=== PATIENT | female | born 1975 | race Caucasian/White ===

== ENCOUNTER 2023-08-05 11:00 | Outpatient (RCR) | payer BC, SELFPAY ==
--- NOTE | 2023-06-09 14:29 | OPREHPOC ---
Outpatient Therapy Plan of Care This is a Multidisciplinary Plan of Care that may contain components documented by all disciplines (PT, OT, and ST.) PT Problem 1 PT Problem #1 Knowledge Deficit PT Goal 1 Goal 1. Patient will perform independent HEP Target Visit 4 PT Problem 2 PT Problem #2 Impaired Strength PT Goal 1 Goal 1. Improve pelvic floor strength to 4/5 to decrease pelvic pressure Target Visit 4 PT Goal 2 Goal 2. Improve pelvic floor endurance to 10 seconds to decrease pelvic pressure Target Visit 4 PT Problem 3 PT Problem #3 Impaired Functional ADLs PT Goal 1 Goal 1. Patient able to sleep without needing to void more than 1 time at night Target Visit 4
--- NOTE | 2023-06-09 14:29 | PTOPEVAL1 ---
Assessment and note entered by Lela Reyna DPShamika Evaluation Information Assessment Status Evaluation Subjective Information Pt reports a lot of pelvic pressure when she has to go to the bathroom. Has also been told she has bladder sensitivity . States her urologist thinks she needs to be able to relax the muscles in order to void. Has lost a significant amount of weight (67 pounds) since November, has been having urinary issues since April. Pt voids up to 16 times a day (less if she doesn't put stevia in her coffee), gets up 2-3 more times at night to void. No urine leakage typically, less often than monthly. Pressure and discomfort with urination but no pain. Was recently given antibiotics for a UTI but was not cultured. BM maybe 1 time a week ( reports she has never been regular). Sometimes pain with BM. Denies history of pelvic pain. Pt has been 2 times, 2 C-sections. Abnormal pap smear in the past but follow up test was fine. Denies other b/b issues. Patient goal: decrease discomfort/pressure with voiding, decrease frequency of urination especially at night. Reported Pain Level Pain Score 0: Self Report Assessment PT Clinical Summary The patient is presenting to skilled therapy with a recent history of pelvic pressure and urinary frequency. She presents with decreased pelvic floor strength and endurance, as well as overall decreased core strength, which are contributing to her symptoms. She will highly benefit from therapy to address these impairments to decrease pressure and decrease frequency of urination . Plan of Care Interventions Manual Therapy,Neuro Re-education,Patient/ Caregiver Education,Therapeutic Activities, Therapeutic Exercise PT Services Indicated Yes Treatment Frequency and 1 time a week for 4 visits Duration These treatments will address the objective and functional deficits as defined above. The patient will be advanced safely and appropriately in order for the patient to progress towards his/her prior level of function. Additional exercises will be introduced and as well as a comprehensive home exercise program upon discharge, if needed, ?to ensure carryover of functional gains achieved in the clinic. This treatment plan has been reviewed and agreement upon by the patient.
--- NOTE | 2023-07-07 15:03 | OPREHPOC ---
Outpatient Therapy Plan of Care This is a Multidisciplinary Plan of Care that may contain components documented by all disciplines (PT, OT, and ST.) PT Problem 1 PT Problem #1 Knowledge Deficit PT Goal 1 Goal 1. Patient will perform independent HEP Target Visit 7 Progress Partially Met Comment new HEP issued today PT Problem 2 PT Problem #2 Impaired Strength PT Goal 1 Goal 1. Improve pelvic floor strength to 4/5 to decrease pelvic pressure New goal: 2. Improve strength to 5/5 to decrease pelvic pressure Target Visit 7 Progress Partially Met Comment 1. Met 2. New PT Goal 2 Goal 2. Improve pelvic floor endurance to 10 seconds to decrease pelvic pressure Target Visit 4 Progress Met PT Problem 3 PT Problem #3 Impaired Functional ADLs PT Goal 1 Goal 1. Patient able to sleep without needing to void more than 1 time at night Target Visit 4 Progress Met
--- NOTE | 2023-07-07 15:04 | PTOPPROG ---
Assessment and note entered by Lela Reyna DPT Evaluation Information Assessment Status Progress Subjective Information Overall feels better with therapy, does not notice pressure when her bladder is really full but does notice it other times. The sensation is not happening as often. Denies urine leakage. Voiding less frequently throughout the day as well, a lot lower than 16 times a day . Almost always 1 time at night. Assessment PT Clinical Summary The patient has made good progress in therapy and reports decreased frequency of pelvic pressure with voiding and decreased frequency of urination. She demonstrates improved core and pelvic floor strength and endurance but continues to have difficulty with pelvic floor coordination activities. She will benefit from continued skilled therapy to further address strength and coordination to eliminate pressure with voiding. Plan of Care Interventions Manual Therapy,Neuro Re-education,Patient/ Caregiver Education,Therapeutic Activities, Therapeutic Exercise PT Services Indicated Yes Treatment Frequency and 1 visit every other week x 2 visits Duration These treatments will address the objective and functional deficits as defined above. The patient will be advanced safely and appropriately in order for the patient to progress towards his/her prior level of function. Additional exercises will be introduced and as well as a comprehensive home exercise program upon discharge, if needed, ?to ensure carryover of functional gains achieved in the clinic. This treatment plan has been reviewed and agreement upon by the patient.
--- NOTE | 2023-08-05 11:28 | OPREHPOC ---
Outpatient Therapy Plan of Care This is a Multidisciplinary Plan of Care that may contain components documented by all disciplines (PT, OT, and ST.) PT Problem 1 PT Problem #1 Knowledge Deficit PT Goal 1 Goal 1. Patient will perform independent HEP Target Visit 7 Progress Met Comment new HEP issued today PT Problem 2 PT Problem #2 Impaired Strength PT Goal 1 Goal 1. Improve pelvic floor strength to 4/5 to decrease pelvic pressure New goal: 2. Improve strength to 5/5 to decrease pelvic pressure Target Visit 7 Progress Partially Met Comment 1. Met 2. Not met PT Goal 2 Goal 2. Improve pelvic floor endurance to 10 seconds to decrease pelvic pressure Target Visit 4 Progress Met PT Problem 3 PT Problem #3 Impaired Functional ADLs PT Goal 1 Goal 1. Patient able to sleep without needing to void more than 1 time at night Target Visit 4 Progress Partially Met
--- NOTE | 2023-08-05 11:28 | PTOPDC ---
Assessment and note entered by Lela Reyna DPT Evaluation Information Assessment Status Discharge Subjective Information Pt reports she has felt the pressure hardly at all in the last week. Voiding 6-7 times a day and up to 2 times at night. Reported Pain Level Pain Score 0: Self Report Assessment PT Clinical Summary The patient has continued to make good progress and reports she feels pelvic pressure with urination very infrequently. She also reports decreased urinary frequency. Due to her progress, plan to discharge to [facility]. She has been educated to follow up with MD and/or PT as needed. Plan of Care PT Services Indicated No
== END 2023-08-08 13:22 | disposition home or self-care (01) ==
LOC: ANHPT 11:00
PROVIDERS: PCP Family Medicine
DX: R35.0 Frequency of micturition (principal); R10.2 Pelvic and perineal pain
CPT/HCPCS: 97112; 97161; 97530

== ENCOUNTER 2025-05-09 11:00 | Outpatient (RCR) | payer BC, SELFPAY ==
--- NOTE | 2025-03-21 14:35 | OPREHPOC ---
Outpatient Therapy Plan of Care This is a Multidisciplinary Plan of Care that may contain components documented by all disciplines (PT, OT, and ST.) PT Problem 1 PT Problem #1 Knowledge Deficit PT Goal 1 Goal / Goal Update 1*independent with HEP 2* pt voice correct work station set up and computer use Target Visit 8 PT Problem 2 PT Problem #2 Pain PT Goal 1 Goal / Goal Update 1* pt report pain rating of neck at worst of 1/10 2* pt report NO pain in R shoulder joint Target Visit 8 PT Problem 3 PT Problem #3 Impaired Flexibility PT Goal 1 Goal / Goal Update * increase cervical rotation to improve driving and self care/home tasks: 1* to R 65' 2*to L 65' Target Visit 8 PT Problem 4 PT Problem #4 Impaired Strength PT Goal 1 Goal / Goal Update *improve cervical-thoracic strength, to improve position of neck 1* pt maintain correct shoulder position during therapy sessions 2* pt perform 20 reps of standing strengthening exercises Target Visit 8
--- NOTE | 2025-03-21 14:36 | PTOPEVAL1 ---
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 Self assessment Neck Disability index rating of 34% limitation in activity level. Since receiving the shoulder injection, her R shoulder pain has eased and gone. She has seen a neck dr and has therapy orders from her also. She works from home, computer and phone work. With the evaluation: she has tightness over R and L upper traps and SCM with rounded shoulders and forward head and neck posture; decreased cervical rotation to R and L with pain increase over R cervical area. Skilled PT services are indicated for modalities to decrease pain and spasms, with therapeutic exercises to increase cervical-thoracic flexibility and strength, to improve posture and positioning, with education for HEP and body mechanics. Plan of Care Interventions Electrical Stimulation,Hot Pack/Cold Pack,Manual Therapy,Mechanical Traction,Neuro Re-education, Patient/Caregiver Education,Therapeutic Activities ,Therapeutic Exercise,Ultrasound,Other Other Interventions taping, dry needling- she agreed to PT Services Indicated Yes Treatment Frequency and 1-2x/wk for 8 visits Duration These treatments will address the objective and functional deficits as defined above. The patient will be advanced safely and appropriately in order for the patient to progress towards his/her prior level of function. Additional exercises will be introduced and as well as a comprehensive home exercise program upon discharge, if needed, ?to ensure carryover of functional gains achieved in the clinic. This treatment plan has been reviewed and agreement upon by the patient.
--- NOTE | 2025-04-11 11:49 | PCPTNOTE ---
pt no call no showed her visit today.
--- NOTE | 2025-05-09 12:47 | OPREHPOC ---
Outpatient Therapy Plan of Care This is a Multidisciplinary Plan of Care that may contain components documented by all disciplines (PT, OT, and ST.) PT Problem 1 PT Problem #1 Knowledge Deficit PT Goal 1 Goal / Goal Update 1*independent with HEP 2* pt voice correct work station set up and computer use 05-09-25 d/c goals met Target Visit 8 Progress Met PT Problem 2 PT Problem #2 Pain PT Goal 1 Goal / Goal Update 1* pt report pain rating of neck at worst of 11/30 2* pt report NO pain in R shoulder joint 05-09-25 d/c goal 2 met Target Visit 8 Progress Partially Met PT Problem 3 PT Problem #3 Impaired Flexibility PT Goal 1 Goal / Goal Update * increase cervical rotation to improve driving and self care/home tasks: 1* to R 65' 2*to L 65' 05-09-25 d/c goals met Target Visit 8 Progress Met PT Problem 4 PT Problem #4 Impaired Strength PT Goal 1 Goal / Goal Update *improve cervical-thoracic strength, to improve position of neck 1* pt maintain correct shoulder position during therapy sessions 2* pt perform 20 reps of standing strengthening exercises 05-09-25 d/c goals met Target Visit 8 Progress Met
--- NOTE | 2025-05-09 12:47 | PTOPDC ---
Assessment and note entered by Jamee Hansen, PT Assessment Status Discharge ICD-10 Condition Codes (PT) Pain in right shoulder M25.511 Other ICD-10 Condition Codes ( M75.41, M 75.42 shoulder impingement and pain PT) Onset December 2024 Subjective Information shoulder has been better since receiving the cortisone shot; R side of neck is still tight; do not have a follow up appointment with ; Reported Pain Level Pain Score Self Report Additional Pain Score Comments pain range of neck pain 1-5/10 R side of neck is tight, rubber band pulling as tight as can go; Assessment PT Clinical Summary Tiff has received 7 PT sessions. Compared to the initial evaluation: pain rating of neck from 1-2 to 1-5/10- reports tight, not pain; and no pain in her R shoulder; self assessment Neck Index rating from 34 to 6% limitation in activity level; increase cervical ROM of rotation to R and L have increased; only cervical rotation to L increases the tightness over R neck; independent with HEP, body mechanics , work station set up, posture and pain management techniques. The goals were partially met. Discharge PT. She is to continue with her home exercises and posture awareness. Plan of Care PT Services Indicated No
== END 2025-05-09 14:27 | disposition home or self-care (01) ==
LOC: ANHPT 11:00
PROVIDERS: PCP Family Medicine; Visit Provider Orthopaedic Surgery
DX: M75.41 Impingement syndrome of right shoulder (principal)
CPT/HCPCS: 20560; 97012; 97110; 97140; 97161; 97530

== ENCOUNTER 2025-09-02 12:30 | Outpatient (RCR) | payer BC, SELFPAY ==
--- NOTE | 2025-06-26 08:26 | OPREHPOC ---
Outpatient Therapy Plan of Care This is a Multidisciplinary Plan of Care that may contain components documented by all disciplines (PT, OT, and ST.) PT Problem 1 PT Problem #1 Knowledge Deficit PT Goal 1 Goal / Goal Update Patient to demonstrate independence with HEP for improved self-reliance of symptom management. Target Visit 5 PT Problem 2 PT Problem #2 Pain PT Goal 1 Goal / Goal Update 1. Patient to decrease subjective reports of pain to <2/10 with combined hip mobility for improved ADL tolerance. 2. Pt will increase LEFS score by at least 9 points in order to demonstrate the minimal clinically important difference (MCID) in functional improvement. Target Visit 10 PT Problem 3 PT Problem #3 Impaired Strength PT Goal 1 Goal / Goal Update Patient to demonstrate L hip strength >=5/5 for improved functional stability required for ADLs. Target Visit 10 PT Problem 4 PT Problem #4 Impaired Range of Motion PT Goal 1 Goal / Goal Update Pt to demonstrate an increase of L hip ER/IR AROM of WFL to improve LE dressing. Target Visit 10
--- NOTE | 2025-06-26 08:26 | PTOPEVAL1 ---
Assessment and note entered by Malia Ashby PT Evaluation Information Assessment Status Evaluation ICD-10 Condition Codes (PT) Pain in right hip M25.551 Subjective Information Primary Complaint: Lateral Thigh Pain Pain description: throbbing, L lateral/posterior History of current condition: Pt reports symptoms started on last July. She had a deep tissue massage and woke up the next day with the pain. She had to put it off due to neck pain which she finished therapy for in April. She reports having the throbbing for so long that she has been trying to stretch her hip out to help. She reports at early onset she could not have even crossed her legs and would have to pick it up at times. She tends to sit with her ankles crossed all the time. She also has a history of chronic ITB pain and tightness with certain yoga poses. Sxs made worse with: crossing legs, trying to put shoes on Sxs improved with: avoiding position, no change with Meloxicam CLOF: unable to meditate or perform yoga poses, difficulty putting shoes on PLOF: no limitations Reported Pain Level Pain Score 0: Self Report Assessment PT Clinical Summary Pt is a year old female who presents to physical therapy with a primary complaint of L lateral thigh pain since July 2024. Pt demonstrates L hip weakness, pain with combined motions of L hip adduction/flexion/external rotation, decreased mobility, gait deficit, and decreased flexibility that limit their ability to perform ADLs. Signs and symptoms potentially indicate hip impingement. Pt will benefit from skilled physical therapy to address the above listed deficits and return to PLOF. HEP instructed and written handout provided, EX tolerated well with no adverse effects to note post-session. Pt was educated on importance of adherence to HEP. Pt was also educated on anatomy, prognosis, home modalities, and PT POC. Plan of Care Interventions Aquatic Therapy,Electrical Stimulation,Gait Training,Hot Pack/Cold Pack,Manual Therapy,Neuro Re-education,Patient/Caregiver Education, Therapeutic Activities,Therapeutic Exercise,Self- Care/Home Management PT Services Indicated Yes Treatment Frequency and 1-2x/wk for 10 sessions Duration These treatments will address the objective and functional deficits as defined above. The patient will be advanced safely and appropriately in order for the patient to progress towards his/her prior level of function. Additional exercises will be introduced and as well as a comprehensive home exercise program upon discharge, if needed, ?to ensure carryover of functional gains achieved in the clinic. This treatment plan has been reviewed and agreement upon by the patient.
--- NOTE | 2025-08-05 10:44 | OPREHPOC ---
Outpatient Therapy Plan of Care This is a Multidisciplinary Plan of Care that may contain components documented by all disciplines (PT, OT, and ST.) PT Problem 1 PT Problem #1 Knowledge Deficit PT Goal 1 Goal / Goal Update Patient to demonstrate independence with HEP for improved self-reliance of symptom management. 08/05/25 progressing, pt needs frequent reinforcement for proper form and gentle stretching Target Visit 5 Progress Partially Met PT Problem 2 PT Problem #2 Pain PT Goal 1 Goal / Goal Update 1. Patient to decrease subjective reports of pain to <2/10 with combined hip mobility for improved ADL tolerance. 2. Pt will increase LEFS score by at least 9 points in order to demonstrate the minimal clinically important difference (MCID) in functional improvement. 08/05/25 1. MET 2. 27% Target Visit 10 Progress Met PT Problem 3 PT Problem #3 Impaired Strength PT Goal 1 Goal / Goal Update Patient to demonstrate L hip strength >=5/5 for improved functional stability required for ADLs. 08/05/25 progressing extension 4+/5 Target Visit 10 Progress Met PT Problem 4 PT Problem #4 Impaired Range of Motion PT Goal 1 Goal / Goal Update Pt to demonstrate an increase of L hip ER/IR AROM of WFL to improve LE dressing. 08/05/25 progressing Target Visit 10 Progress Partially Met
--- NOTE | 2025-08-05 10:44 | PTOPPROG ---
Assessment and note entered by Malia Ashby, PT Evaluation Information Assessment Status Progress ICD-10 Condition Codes (PT) Pain in right hip M25.551 Subjective Information Primary Complaint: Lateral Thigh Pain Pain description: tightness Pt reports symptoms are improving with PT. She can bring her ankle to the top of her opposite knee to put shoes and socks on but she has to use her hand to help it. She is able to sit comfortably with her feet crossed now. She notes some lateral hip discomfort with prolonged standing. Overall, the pt reports feeling 50% improvement since starting therapy. She knows it is going to take progressive and prolonged stretching and strengthening to be completely better. In regards to her main goal in PT to cross her legs she feels 95% better. CLOF: performing yoga and HEP consistently but there are still positions in yoga she is unable to perform Assessment PT Clinical Summary Patient's condition has improved overall as evidenced by advancements in symptoms, mobility, and strength. However, some limitations are still present such as hip extension weakness, ROM restrictions, and proper technique with her HEP. She requires verbal cueing to perform exercises with the proper form and reinforcement for gentle stretching. Patient would benefit from continued skilled PT services to address continued limitations and facilitate a return to her PLOF. Reducing frequency of sessions to improve patient self-reliance with independent strengthening, stretching, and mobility. Plan of Care Interventions Aquatic Therapy,Electrical Stimulation,Gait Training,Hot Pack/Cold Pack,Manual Therapy,Neuro Re-education,Patient/Caregiver Education, Therapeutic Activities,Therapeutic Exercise,Self- Care/Home Management PT Services Indicated Yes Treatment Frequency and 1x/month for 4 sessions Duration These treatments will address the objective and functional deficits as defined above. The patient will be advanced safely and appropriately in order for the patient to progress towards his/her prior level of function. Additional exercises will be introduced and as well as a comprehensive home exercise program upon discharge, if needed, ?to ensure carryover of functional gains achieved in the clinic. This treatment plan has been reviewed and agreement upon by the patient.
== END 2025-09-24 23:59 | disposition home or self-care (01) ==
LOC: ANHPT 12:30
PROVIDERS: PCP Family Medicine; Visit Provider Orthopaedic Surgery
DX: M70.60 Trochanteric bursitis, unspecified hip (principal); M54.30 Sciatica, unspecified side
CPT/HCPCS: 97014; 97110; 97140; 97161; 97530; G0283